=== PATIENT | male | born 1950 | race Caucasian/White ===

== ENCOUNTER 2017-05-17 13:26 | Outpatient (CLI) | payer MEDICARE, MEDICAID, OTHER ==
[~2017-05-17] VITALS: Ht 175.3 cm; Wt 76.7 kg
[2017-05-17] MEDS ORDERED: UNOBMED (15:13)
[2017-05-17 15:15] VITALS: BP 114/70
--- NOTE | 2017-05-17 16:30 | GI Initial Consult Note ---
Pena,Tina Ceferino N.PBecca 05/17/17 1630: History of Present Illness General Date patient seen: May 17, 2017 Time patient seen: 16:19 Referring physician: BRITTANY Reason for Consultation: Colonoscopy Present Illness HPI 66 year old male patient referred by Dr. Mann presents today for routine colonoscopy. Last colonoscopy 5 years ago with colonic polypis. In addition the patient states he has multiple EGDs which have included dilatation, last performed 4 years ago at the [place]. The patient has had multiple paracentesis, last one performed 4 months ago. Denies any diarrhea or constipation. Denies melena or GIB. Denies dysphagia. C/o of min abdominal distention. C/o of severe L. Hip pain. Denies any unintentional weight loss or changes in dietary habits. Patient is fall risk. Home Meds Reported Medications [Pancrelipase ] No Conflict Check, 5000 PO TID 05/18/17 Nut.tx.gluc.intoler,Lac-Fr,Soy (Glucerna) 237 Ml Liquid, 237 ML PO TID, ML 05/18/17 Hydrocodone Bit/Acetaminophen 5-325* (NOR[place] 5-325 TABLET*) 1 Each Tablet, 1 TAB ORAL Q6HR Y for For Pain, TAB 05/18/17 Digoxin* (LANOXIN*) 250 Mcg Tablet, 250 MCG ORAL DAILY, #30 TAB 0 Refills 05/18/17 Digoxin* (DIGOXIN*) 0.25 Mg/5 Ml Solution, 0.25 MG GT DAILY, ML 05/18/17 Metoprolol Tartrate* (METOPROLOL TARTRATE*) 50 Mg Tablet, 50 MG ORAL DAILY, TAB 05/18/17 [Prostatsugar Free] No Conflict Check, 30 ML PO BID 05/18/17 Ascorbic Acid* (VITAMIN C*) 250 Mg Tablet, 250 MG ORAL DAILY, #30 TAB 0 Refills 05/18/17 Insulin Aspart* (NOVOLOG*) 100 Unit/1 Ml Insuln.pen, 0 SUBQ BEFORE MEALS AND HS , #1 EA 0 Refills SLIDING SCALE 05/18/17 Levothyroxine Sodium* (LEVOTHYROXINE SODIUM*) 25 Mcg Tablet, 25 MCG ORAL DAILY, TAB Take in the morning on an empty stomach, at least 30 minutes before food. 05/18/17 Lactulose (LACTULOSE*) 20 Gm/30 Ml Solution, 30 ML ORAL DAILY, ML 0 Refills 05/18/17 Spironolactone* (SPIRONOLACTONE*) 100 Mg Tablet, 100 MG ORAL DAILY, TAB 05/18/17 Rifaximin* (XIFAXAN*) 550 Mg Tablet, 550 MG ORAL TWICE A DAY for 30 Days, MG 0 Refills 05/18/17 Levetiracetam* (LEVETIRACETAM*) 500 Mg Tablet, 500 MG ORAL DAILY, #60 TAB 0 Refills 05/18/17 Insulin Detemir (LEVEMIR) 100 Unit/1 Ml Vial, 15 SUBQ DAILY, VIAL 05/18/17 Gabapentin* (GABAPENTIN*) 300 Mg Capsule, 300 MG ORAL THREE TIMES A DAY, CAP 0 Refills 05/18/17 Furosemide* (LASIX*) 40 Mg Tablet, 40 MG ORAL DAILY, TAB 05/18/17 Folic Acid* (FOLIC ACID*) 1 Mg Tablet, 1 MG ORAL DAILY, TAB 05/18/17 Med list reviewed/reconciled: Yes Allergies: Coded Allergies: No Known Allergies (Unverified , 05/17/17) Patient History History Provided By: Patient PMH Narrative HTN pancreatitis cirrhosis DVT, ?CVA DM with neuropathy ?COPD seizure Family History Narrative Other brother - Colon CA Mother DM, HTN Social History: Reports: alcohol use, other - coffee Review of Systems All Other Systems: negative except mentioned in HPI Physical Exam Vital Signs Date Time Temp Pulse Resp B/P (MAP) Pulse Ox O2 Delivery O2 Flow Rate FiO2 05/17/17 15:15 98.2 61 16 114/70 99 Sp02 EP Interpretation: reviewed, normal General Appearance: well appearing, no apparent distress, alert, other - generalized weakness Head: normocephalic EENT: PERRL/EOMI, normal ENT inspection Neck: supple Respiratory: normal breath sounds, no respiratory distress Cardiovascular: normal rate Gastrointestinal: normal inspection, non tender, soft, normal bowel sounds, non -distended Rectal: deferred Genitourinary: deferred Musculoskeletal: normal inspection, back normal Neurologic: normal inspection, alert, oriented x3, responsive Psychiatric: normal inspection, judgement/insight normal, memory normal Skin: normal inspection, normal color, no rash, warm/dry, palpation normal, well hydrated Lymphatic: normal inspection, no adenopathy GI: Plan Problems: (1) HTN (hypertension) (2) Pancreatitis (3) DVT (deep vein thrombosis) in (4) Diabetes mellitus (5) Seizure (6) Colonoscopy planned Plan EGD/colonoscopy scheduled for 05/21/17. - CLD & (Nulytely/Suprep/Movi-Prep) prep instructions given and acknowledged by patient. - NPO @ HI day prior procedure explained. labs to be drawn day of procedure >> Hepatitis panel, CBC, CMP, coags Seen with Dr. Burgos. Thank you for this patient referral. ALVARO BURGOS 05/20/17 1147: History of Present Illness Present Illness Home Meds Reported Medications [Pancrelipase ] No Conflict Check, 5000 PO TID 05/18/17 Nut.tx.gluc.intoler,Lac-Fr,Soy (Glucerna) 237 Ml Liquid, 237 ML PO TID, ML 05/18/17 Hydrocodone Bit/Acetaminophen 5-325* (NOR[place] 5-325 TABLET*) 1 Each Tablet, 1 TAB ORAL Q6HR Y for For Pain, TAB 05/18/17 Digoxin* (LANOXIN*) 250 Mcg Tablet, 250 MCG ORAL DAILY, #30 TAB 0 Refills 05/18/17 Digoxin* (DIGOXIN*) 0.25 Mg/5 Ml Solution, 0.25 MG GT DAILY, ML 05/18/17 Metoprolol Tartrate* (METOPROLOL TARTRATE*) 50 Mg Tablet, 50 MG ORAL DAILY, TAB 05/18/17 [Prostatsugar Free] No Conflict Check, 30 ML PO BID 05/18/17 Ascorbic Acid* (VITAMIN C*) 250 Mg Tablet, 250 MG ORAL DAILY, #30 TAB 0 Refills 05/18/17 Insulin Aspart* (NOVOLOG*) 100 Unit/1 Ml Insuln.pen, 0 SUBQ BEFORE MEALS AND HS , #1 EA 0 Refills SLIDING SCALE 05/18/17 Levothyroxine Sodium* (LEVOTHYROXINE SODIUM*) 25 Mcg Tablet, 25 MCG ORAL DAILY, TAB Take in the morning on an empty stomach, at least 30 minutes before food. 05/18/17 Lactulose (LACTULOSE*) 20 Gm/30 Ml Solution, 30 ML ORAL DAILY, ML 0 Refills 05/18/17 Spironolactone* (SPIRONOLACTONE*) 100 Mg Tablet, 100 MG ORAL DAILY, TAB 05/18/17 Rifaximin* (XIFAXAN*) 550 Mg Tablet, 550 MG ORAL TWICE A DAY for 30 Days, MG 0 Refills 05/18/17 Levetiracetam* (LEVETIRACETAM*) 500 Mg Tablet, 500 MG ORAL DAILY, #60 TAB 0 Refills 05/18/17 Insulin Detemir (LEVEMIR) 100 Unit/1 Ml Vial, 15 SUBQ DAILY, VIAL 05/18/17 Gabapentin* (GABAPENTIN*) 300 Mg Capsule, 300 MG ORAL THREE TIMES A DAY, CAP 0 Refills 05/18/17 Furosemide* (LASIX*) 40 Mg Tablet, 40 MG ORAL DAILY, TAB 05/18/17 Folic Acid* (FOLIC ACID*) 1 Mg Tablet, 1 MG ORAL DAILY, TAB 05/18/17 Allergies: Coded Allergies: No Known Allergies (Unverified , 05/17/17) GI: Plan Plan The patient was seen and examined at bedside and all new and available data was reviewed in the patients chart. I agree with the above findings, impression and plan. (Patient seen earlier today. Signature stamp does not reflect patient encounter time.). - MD Becky Veloz Anh Ceferino NAdan May 17, 2017 16:30 ALVARO BURGOS May 20, 2017 11:47
[2017-05-18] MEDS ORDERED: FOLIC ACID1 MG ORAL (09:45)
[2017-05-18] MEDS ORDERED: LANOXIN250 MCG ORAL (09:45)
[2017-05-18] MEDS ORDERED: LACTULOSE20 GM/301 ORAL (09:45)
[2017-05-18] MEDS ORDERED: GLUCERNA237 ML PO (09:45)
[2017-05-18] MEDS ORDERED: DIGOXIN0.25 MG/5 GT (09:45)
[2017-05-18] MEDS ORDERED: LEVEMIR100 UNIT/1 SUBQ (09:45)
[2017-05-18] MEDS ORDERED: [UNRECOGNIZED DRUG - OTHER] PO (09:45)
[2017-05-18] MEDS ORDERED: PANCRELIPASE PO (09:45)
[2017-05-18] MEDS ORDERED: LEVETIRACETAM500 MG ORAL (09:45)
[2017-05-18] MEDS ORDERED: NOVOLOG100 UNIT/3 SUBQ (09:45)
[2017-05-18] MEDS ORDERED: SPIRONOLACTONE100 MG ORAL (09:45)
[2017-05-18] MEDS ORDERED: VITAMIN C250 MG ORAL (09:45)
[2017-05-18] MEDS ORDERED: XIFAXAN550 MG ORAL (09:45)
[2017-05-18] MEDS ORDERED: GABAPENTIN300 MG ORAL (09:45)
[2017-05-18] MEDS ORDERED: FUROSEMIDE40 MG ORAL (09:45)
[2017-05-18] MEDS ORDERED: METOPROLOL TART50 M1 ORAL (09:45)
[2017-05-18] MEDS ORDERED: LEVOTHYROXINE25 MCG ORAL (09:45)
[2017-05-18] MEDS ORDERED: NORCO 5-325 TA1 EAC1 ORAL (09:45)
== END 2017-05-17 13:59 | disposition home or self-care (01) ==
LOC: PAN 13:26
DX: K85.90 Acute pancreatitis without necrosis or infection, unspecified (principal); I10 Essential (primary) hypertension; G40.909 Epilepsy, unspecified, not intractable, without status epilepticus; Z86.010 Personal history of colon polyps; E11.40 Type 2 diabetes mellitus with diabetic neuropathy, unspecified; M25.552 Pain in left hip; Z80.0 Family history of malignant neoplasm of digestive organs; Z82.49 Family history of ischemic heart disease and other diseases of the circulatory system; Z83.3 Family history of diabetes mellitus; Z86.718 Personal history of other venous thrombosis and embolism
CPT/HCPCS: 99202

== ENCOUNTER 2017-05-21 09:04 | Day surgery (SDC) | payer MEDICARE, MEDICAID ==
[~2017-05-21] VITALS: Ht 175.3 cm; Wt 77.1 kg
[2017-05-21] VITALS (7 sets, daily range): BP systolic 127–142; BP diastolic 73–87
[~2017-05-21 09:04] MED LIST: DIGOXIN0.25 MG/5 GT; FOLIC ACID1 MG ORAL; FUROSEMIDE40 MG ORAL; GABAPENTIN300 MG ORAL; GLUCERNA237 ML PO; LACTULOSE20 GM/301 ORAL; LANOXIN250 MCG ORAL; LEVEMIR100 UNIT/1 SUBQ; LEVETIRACETAM500 MG ORAL; LEVOTHYROXINE25 MCG ORAL; METOPROLOL TART50 M1 ORAL; NORCO 5-325 TA1 EAC1 ORAL; NOVOLOG100 UNIT/3 SUBQ; PANCRELIPASE PO; SPIRONOLACTONE100 MG ORAL; UNOBMED; VITAMIN C250 MG ORAL; XIFAXAN550 MG ORAL; [UNRECOGNIZED DRUG - OTHER] PO
[2017-05-21] MEDS ORDERED: Lidocaine 1% MPF 10mg/ml 5ml ONE (10:00)
[2017-05-21] MEDS ORDERED: Propofol 200mg/20ml IV ONE (10:00)
[2017-05-21] MEDS ORDERED: Midazolam 2mg/2ml Inj ONE (10:00)
--- NOTE | 2017-05-21 10:00 | Short Stay Surgery H&P ---
History of Present Illness History of Present Illness Chief Complaint see recent consult note HPI Doyle Og is a 66 year old male who was admitted on for Hx Of Colon Polyps Patient History Allergies: Coded Allergies: No Known Allergies (Unverified , 05/17/17) PAST MEDICAL HISTORY: Past Surgeries: Social History: Medication History Scheduled Ascorbic Acid* (Vitamin C*), 250 MG ORAL DAILY, (Reported) Digoxin* (Digoxin*), 0.25 MG GT DAILY, (Reported) Digoxin* (Lanoxin*), 250 MCG ORAL DAILY, (Reported) Folic Acid* (Folic Acid*), 1 MG ORAL DAILY, (Reported) Furosemide* (Lasix*), 40 MG ORAL DAILY, (Reported) Gabapentin* (Gabapentin*), 300 MG ORAL THREE TIMES A DAY, (Reported) Insulin Aspart* (Novolog*), 0 SUBQ BEFORE MEALS AND HS, (Reported) Insulin Detemir (Levemir), 15 SUBQ DAILY, (Reported) Lactulose (Lactulose*), 30 ML ORAL DAILY, (Reported) Levetiracetam* (Levetiracetam*), 500 MG ORAL DAILY, (Reported) Levothyroxine Sodium* (Levothyroxine Sodium*), 25 MCG ORAL DAILY, (Reported) Metoprolol Tartrate* (Metoprolol Tartrate*), 50 MG ORAL DAILY, (Reported) Nut.tx.gluc.intoler,Lac-Fr,Soy (Glucerna), 237 ML PO TID, (Reported) Rifaximin* (Xifaxan*), 550 MG ORAL TWICE A DAY, (Reported) Spironolactone* (Spironolactone*), 100 MG ORAL DAILY, (Reported) [Pancrelipase ], 5,000 PO TID, (Reported) [Prostatsugar Free], 30 ML PO BID, (Reported) Scheduled PRN Hydrocodone Bit/Acetaminophen 5-325* ([place] 5-325 Tablet*), 1 TAB ORAL Q6HR PRN for For Pain, (Reported) Physical Exam Vital Signs Last Vital Signs Date Time Temp Pulse Resp B/P (MAP) Pulse Ox O2 Delivery O2 Flow Rate FiO2 05/21/17 09:44 98.0 78 18 131/78 99 Room Air Plan Attestation Are the patient's medical conditions optimized for surgery? ALVARO BURGOS May 21, 2017 10:00
--- NOTE | 2017-05-21 10:00 | Pre-Procedure Note/Attestation ---
Pre-Procedure Note/Attestation Complete Prior to Procedure Planned Procedure: not applicable Procedure Narrative: egd/colonoscopy Indications for Procedure Pre-Operative Diagnosis: h/o of colon polyps and esoph stricture Attestation I attest that I discussed the nature of the procedure; its benefits; risks and complications; and alternatives (and the risks and benefits of such alternatives ), prior to the procedure, with the patient (or the patient's legal car sales representative). I attest that, if there was a reasonable possibility of needing a blood transfusion, the patient (or the patient's legal car sales representative) was given the [facility] Services standardized written summary, pursuant to the Matt Dion Blood Safety Act ([place] Health and Safety Code # 1645, as amended). I attest that I re-evaluated the patient just prior to the surgery and that there has been no change in the patient's H&P, except as documented below: ALVARO BURGOS May 21, 2017 10:00
--- NOTE | 2017-05-21 10:29 | Anethesia Preoperative Eval ---
Anesthesia Pre-op PMH/ROS General Date of Evaluation: May 21, 2017 Time of Evaluation: 10:15 Anesthesiologist: Servando ASA Score: ASA 3 Mallampati Score Class I : Soft palate, uvula, fauces, pillars visible Class II: Soft palate, uvula, fauces visible Class III: Soft palate, base of uvula visible Class IV: Only hard plate visible Mallampati Classification: Class II Surgeon: Tom Diagnosis: colon polyps Surgical Procedure: EGD/Colonoscopy Anesthesia History: none Social History: smoking, alcohol use - quit 2015 Family History: no anesthesia problems Allergies: Coded Allergies: No Known Allergies (Unverified , 05/17/17) Medications: see eMAR Past Medical History Cardiovascular: Reports: HTN, other - chf Pulmonary: Reports: COPD Gastrointestinal/Genitourinary: Reports: GERD, other - colon polyps Neurologic/Psychiatric: Reports: CVA - right sided weakness, other - seizures Endocrine: Reports: DM, hypothyroidism, other - cirrhosis ascites Hematology/Immune: Reports: DVT Musculoskeletal/Integumentary: Reports: OA - back pain, DJD, other - unsteady gait Anesthesia Pre-op Phys. Exam Physician Exam Last Vital Signs Date Time Temp Pulse Resp B/P (MAP) Pulse Ox O2 Delivery O2 Flow Rate FiO2 05/21/17 09:44 98.0 78 18 131/78 99 Room Air Constitutional: NAD Neurologic: CN 2-12 intact Cardiovascular: RRR Respiratory: CTA Gastrointestinal: S/NT/ND Airway Exam Mallampati Score: Class II MO: limited ROM: limited Teeth: missing, intact Dentures: no upper, no lower Anesthesia Pre-op A/P Labs chart reviewed Accucheck 274 Studies Pre-op Studies: EKG - NSR 78 BPM Risk Assessment & Plan Assessment: A&Ox4 Plan: MAC Status Change Before Surgery: No Pre-Antibiotics Given Within 1 Hr of Incision: No - none per surgeon Florence Al CRNA May 21, 2017 10:29
--- NOTE | 2017-05-21 10:51 | Immediate Post-Op Evaluation ---
Immediate Post-Op Evalulation Immediate Post-Op Evalulation Procedure: EGD/Colon Date of Evaluation: May 21, 2017 Time of Evaluation: 11:05 IV Fluids: NSS 550ml Blood Products: 0 Estimated Blood Loss: 0 Urinary Output: 0 Blood Pressure Systolic: 127 Blood Pressure Diastolic: 73 Pulse Rate: 72 Respiratory Rate: 20 O2 Sat by Pulse Oximetry: 99 Temperature (Fahrenheit): 97.7 Pain Score (1-10): 0 Nausea: No Vomiting: No Complications none noted Patient Status: awake, reacts Hydration Status: adequate Given Within 1 Hr of Incision: Florence Humphrey CRNA May 21, 2017 10:51
--- NOTE | 2017-05-21 10:58 | 48 Hour Post Anesthesia Eval ---
Post Anesthesia Evaluation Procedure: EGD/Colon Date of Evaluation: May 21, 2017 Time of Evaluation: 11:19 Blood Pressure Systolic: 132 0: 74 Pulse Rate: 74 Respiratory Rate: 20 Temperature (Fahrenheit): 97.7 O2 Sat by Pulse Oximetry: 99 Airway: patent Nausea: No Vomiting: No Pain Intensity: 0 Hydration Status: adequate Mental Status/LOC: patient returned to baseline Post-Anesthesia Complications: none noted Follow-up care needed: patient intructions given Florence Al CRNA May 21, 2017 10:58
--- NOTE | 2017-05-21 10:58 | Endoscopy Procedure Note ---
Endoscopy Procedure Note Indication for Procedure: screening colon, GERD, esop stricture Procedures Performed: EGD, colonoscopy Operative Findings/Diagnosis: HH, gastritis, hemorrhoids Specimen: yes Pt Tolerated Procedure Well: Yes Estimated Blood Loss: none Anesthesiologist: sammi Anesthesia: MAC Implant(s) used?: No 50 yrs or older w/o bx or poly: No 10yrs. F/U not recommended: Yes If not recommended, why?: Above average risk 10 yrs. F/U needed: Yes 18 years or older w/prev. colo: Yes <3yrs. since last colonoscopy: No ALVARO BURGOS May 21, 2017 10:57
--- NOTE | 2017-05-22 02:15 | Procedure Note ---
DATE OF PROCEDURE: 05/21/2017 SURGEON: Sergio Santos M.D. PROCEDURE: Upper endoscopy with biopsy and colonoscopy. ANESTHESIA: Per Servando QUIÑONES. INSTRUMENT: Olympus adult flexible endoscope and colonoscope. INDICATION: History of esophageal strictures, screening colonoscopy, and prior history of colonic polyps. REASON FOR PROCEDURE: The procedure, risks, benefits, and possible consequences, including hemorrhage, aspiration, perforation and infection, and alternative treatments, were explained to the patient/legal guardian by Dr. Sergio Santos and the patient/legal guardian understood and accepted these risks. DESCRIPTION OF PROCEDURE: After informed consent was obtained and the patient was adequately sedated, Olympus upper endoscope was advanced from mouth into the second portion of the duodenum and retroflexion was performed of the stomach. The patient had a very shortened esophagus. The esophagus measured roughly about 30 centimeters. There was evidence of a medium-sized hiatal hernia. In the stomach, there was a lesion that roughly measured about 2 centimeters along the lesser curvature. This lesion had prominent folds on it. There was no evidence of any active ulceration or bleeding. This may be a submucosal lesion or prominent fold. This lesion needs to be further evaluated by EUS another day. The patient also had diffuse gastritis. Random biopsy from antrum and body was obtained. Gastritis was more prominent in the antrum of the stomach. Then, at this time the upper endoscope was retrieved and the patient was turned over for colonoscopy. First, a rectal exam was performed, which was positive for internal hemorrhoids. Then, the scope was advanced from the rectum into the cecum documented by appendiceal orifice, ileocecal valve, and right upper quadrant palpation. Quality of prep was good in the right colon, but unfortunately in the left colon, especially in the rectosigmoid area was limited. Half of the rectum was filled with solid stool, so examination of the rectum was definitely limited. Even the sigmoid colon, I would say 30% of the colonic mucosa of the sigmoid was not evaluated given prep. There was no obvious evidence of mass, polyp, bleeding or any other lesion in the colon. There was evidence of hemorrhoids, which was seen on retroflexion. SUMMARY OF FINDINGS: 1. Shortened esophagus. 2. Gastritis, status post biopsy. 3. Hiatal hernia. 4. A 2 centimeter lesion along the lesser curvature below the Z-line, needs EUS for further evaluation. 5. Fair colonic prep, especially in the left side. 6. No obvious colonic polyps. 7. Internal hemorrhoids. RECOMMENDATIONS: 1. The patient to have followup biopsies and treat accordingly. 2. The patient would need EUS as an outpatient for evaluation of this gastric lesion. 3. The patient would need a repeat colonoscopy in 5 years. I want to thank, Dr. Shukri Hernández, for this kind referral. Sergio Santos M.D. DR: GONZÁLEZ JOB#: [id number] CC: Shukri Hernández M.D.; Fax#: [phone]
--- NOTE | 2017-05-27 18:02 | Cardiology Report ---
APPROVED REPORT EKG Measurement Heart [id number] AL [id number] Normal sinus rhythm Low voltage QRS Borderline ECG
== END 2017-05-21 12:50 | disposition home or self-care (01) ==
LOC: GAS 09:04
DX: Z12.11 Encounter for screening for malignant neoplasm of colon (principal); K44.9 Diaphragmatic hernia without obstruction or gangrene; K64.8 Other hemorrhoids; Z86.010 Personal history of colon polyps; Q39.8 Other congenital malformations of esophagus; I10 Essential (primary) hypertension; J44.9 Chronic obstructive pulmonary disease, unspecified; K21.9 Gastro-esophageal reflux disease without esophagitis; G81.91 Hemiplegia, unspecified affecting right dominant side; M19.90 Unspecified osteoarthritis, unspecified site; Z86.718 Personal history of other venous thrombosis and embolism; E11.9 Type 2 diabetes mellitus without complications; E03.9 Hypothyroidism, unspecified
CPT/HCPCS: 43239; 82962; 93005; G0121; J2250; J2704; 94003; 94150

== ENCOUNTER 2017-06-18 09:51 | Day surgery (SDC) | payer MEDICARE, MEDICAID ==
[2017-06-18] VITALS (9 sets, daily range): BP systolic 111–148; BP diastolic 63–90
[~2017-06-18] VITALS: Ht 175.3 cm; Wt 77.1 kg
--- NOTE | 2017-06-18 10:18 | Pre-Procedure Note/Attestation ---
Pre-Procedure Note/Attestation Complete Prior to Procedure Planned Procedure: not applicable Procedure Narrative: eus Indications for Procedure Pre-Operative Diagnosis: gastric submucosal lesion Attestation I attest that I discussed the nature of the procedure; its benefits; risks and complications; and alternatives (and the risks and benefits of such alternatives ), prior to the procedure, with the patient (or the patient's legal technical account representative). I attest that, if there was a reasonable possibility of needing a blood transfusion, the patient (or the patient's legal technical account representative) was given the [facility] standardized written summary, pursuant to the Matt Dion Blood Safety Act ([place] Health and Safety Code # 1645, as amended). I attest that I re-evaluated the patient just prior to the surgery and that there has been no change in the patient's H&P, except as documented below: ALVARO BURGOS Jun 18, 2017 10:18
--- NOTE | 2017-06-18 10:19 | Short Stay Surgery H&P ---
History of Present Illness History of Present Illness Chief Complaint gastric submucosal lesion HPI Doyle Og is a 66 year old male who was admitted on for Gastric Lesion Patient History Allergies: Coded Allergies: No Known Allergies (Unverified , 05/17/17) PAST MEDICAL HISTORY: (1) HTN (hypertension) (2) Seizure (3) Diabetes mellitus (4) DVT (deep vein thrombosis) in Past Surgeries: Social History: Medication History Scheduled Ascorbic Acid* (Vitamin C*), 250 MG ORAL DAILY, (Reported) Digoxin* (Lanoxin*), 250 MCG ORAL DAILY, (Reported) Folic Acid* (Folic Acid*), 1 MG ORAL DAILY, (Reported) Furosemide* (Lasix*), 40 MG ORAL DAILY, (Reported) Gabapentin* (Gabapentin*), 300 MG ORAL THREE TIMES A DAY, (Reported) Insulin Aspart* (Novolog*), 0 SUBQ BEFORE MEALS AND HS, (Reported) Insulin Detemir (Levemir), 15 SUBQ DAILY, (Reported) Lactulose (Lactulose*), 30 ML ORAL DAILY, (Reported) Levetiracetam* (Levetiracetam*), 500 MG ORAL DAILY, (Reported) Levothyroxine Sodium* (Levothyroxine Sodium*), 25 MCG ORAL DAILY, (Reported) Metoprolol Tartrate* (Metoprolol Tartrate*), 50 MG ORAL DAILY, (Reported) Nut.tx.gluc.intoler,Lac-Fr,Soy (Glucerna), 237 ML PO TID, (Reported) Rifaximin* (Xifaxan*), 550 MG ORAL TWICE A DAY, (Reported) Spironolactone* (Spironolactone*), 100 MG ORAL DAILY, (Reported) [Pancrelipase ], 5,000 PO TID, (Reported) [Prostatsugar Free], 30 ML PO BID, (Reported) Scheduled PRN Hydrocodone Bit/Acetaminophen 5-325* ([place] 5-325 Tablet*), 1 TAB ORAL Q6HR PRN for For Pain, (Reported) Review of Systems Cardiovascular: Reports: no symptoms Respiratory: Reports: no symptoms Skeletal: Reports: no symptoms Gastrointestinal: Reports: no symptoms Genitourinary: Reports: no symptoms Neurologic: Reports: no symptoms Endocrine: Reports: no symptoms Hematologic: Reports: no symptoms Physical Exam Skin: normal HENT: normal Heart: normal Lungs: normal Abdomen: normal Extremities: normal Plan Plan of Care eus Final Diagnosis: Attestation Are the patient's medical conditions optimized for surgery? Attestation Response: yes ALVARO BURGOS Jun 18, 2017 10:19
[2017-06-18] MEDS ORDERED: Lidocaine 1% MPF 10mg/ml 5ml ONE (11:30)
[2017-06-18] MEDS ORDERED: Propofol 200mg/20ml IV ONE (11:30)
[2017-06-18] MEDS ORDERED: LR 1000ml ONE (11:30)
--- NOTE | 2017-06-18 11:33 | Endoscopy Procedure Note ---
Endoscopy Procedure Note General Indication for Procedure: gastric submucosal lesion Procedures Performed: other - EUS Operative Findings/Diagnosis: same Specimen: none Pt Tolerated Procedure Well: Yes Estimated Blood Loss: none Anesthesia Anesthesiologist: oleksandr Anesthesia: MAC Inserted Devices Implant(s) used?: No GI Core Measures 50 yrs or older w/o bx or poly: Not Applicable 10yrs. F/U not recommended: Not Applicable ALVARO BURGOS Jun 18, 2017 11:33
--- NOTE | 2017-06-18 11:54 | Anethesia Preoperative Eval ---
Anesthesia Pre-op PMH/ROS General Date of Evaluation: Jun 18, 2017 Time of Evaluation: 11:53 Anesthesiologist: amira ASA Score: ASA 3 Mallampati Score Class I : Soft palate, uvula, fauces, pillars visible Class II: Soft palate, uvula, fauces visible Class III: Soft palate, base of uvula visible Class IV: Only hard plate visible Mallampati Classification: Class II Surgeon: unique Diagnosis: pancreatitis Surgical Procedure: EUS Anesthesia History: none Social History: alcohol use Family History: no anesthesia problems Allergies: Coded Allergies: No Known Allergies (Unverified , 05/17/17) Medications: see eMAR Past Medical History Cardiovascular: Reports: HTN, CAD - s/ stent Pulmonary: Denies: asthma, COPD, [place], other Gastrointestinal/Genitourinary: Reports: GERD, Denies: CRI, ESRD, other Neurologic/Psychiatric: Reports: CVA, Denies: dementia, depression/anxiety, TIA, other Endocrine: Reports: DM, hypothyroidism HEENT: Denies: cataract (L), cataract (R), glaucoma, [place] (L), [place] (R), other Hematology/Immune: Reports: anemia, Denies: DVT, bleeding disorder, other Musculoskeletal/Integumentary: Reports: OA, DJD PSxH Narrative: unknown Anesthesia Pre-op Phys. Exam Physician Exam Last Vital Signs Date Time Temp Pulse Resp B/P (MAP) Pulse Ox O2 Delivery O2 Flow Rate FiO2 06/18/17 10:39 99.4 74 20 148/90 100 Room Air 99.4 Constitutional: NAD Neurologic: CN 2-12 intact Cardiovascular: RRR Respiratory: CTA Gastrointestinal: other - distanded Airway Exam Mallampati Classification 3 Mallampati Score: Class II MO: full ROM: full Dentures: no upper, no lower Anesthesia Pre-op A/P Studies Pre-op Studies: EKG - sr Risk Assessment & Plan Assessment: denies cp Plan: mac Status Change Before Surgery: No Pre-Antibiotics Drug: none AIDAN FONTANEZ CRNA Jun 18, 2017 11:54
--- NOTE | 2017-06-18 12:12 | Immediate Post-Op Evaluation ---
Immediate Post-Op Evalulation Immediate Post-Op Evalulation Procedure: EUS Date of Evaluation: Jun 18, 2017 Time of Evaluation: 12:10 IV Fluids: 200 Blood Pressure Systolic: 111 Blood Pressure Diastolic: 63 Pulse Rate: 67 O2 Sat by Pulse Oximetry: 100 Temperature (Fahrenheit): 97.7 Pain Score (1-10): 0 Nausea: No Vomiting: No Complications none Patient Status: awake, reacts, patent Hydration Status: adequate Drug: none AIDAN FONTANEZ CRNA Jun 18, 2017 12:11
--- NOTE | 2017-06-18 12:29 | 48 Hour Post Anesthesia Eval ---
Post Anesthesia Evaluation Procedure: EUS Date of Evaluation: Jun 18, 2017 Time of Evaluation: 12:28 Blood Pressure Systolic: 135 0: 85 Pulse Rate: 74 Respiratory Rate: 14 Airway: patent Nausea: No Vomiting: No Hydration Status: adequate Cardiopulmonary Status: stable Mental Status/LOC: patient returned to baseline Post-Anesthesia Complications: none Follow-up care needed: N/A AIDAN FONTANEZ CRNA Jun 18, 2017 12:29
[2017-06-18] MEDS ORDERED: Norco 5mg/325mg tab ORAL ONE (14:15)
--- NOTE | 2017-06-18 15:54 | Diagnostic Imaging Report ---
Indication: Abdominal pain Technique: Continuous helical transaxial imaging of the abdomen and pelvis was obtained from the lung bases to the pubic symphysis during intravenous contrast administration. Coronal 2-D reformats were also obtained. Study obtained in a Siemens sensation [address] Automatic Exposure Control was utilized. Total Dose length Product (DLP): 857.[address] Dose Index Volume (CTDIvol): 15.7 mGy Comparison: None Findings: There is a small right pleural effusion. Moderate ascites demonstrated. The stomach is nondistended with prominence of the wall, especially in the region of the gastric antrum. Consider follow-up endoscopy.. Tiny gallstone demonstrated. Extensive calcification of the parenchyma of the pancreas noted consistent with chronic calcific pancreatitis. The main pancreatic duct is moderately dilated. The biliary ducts do not appear dilated. There is a suggestion of a small pseudocyst extending anterosuperiorly from the tail of the pancreas measuring about 3 cm. The spleen is prominent measuring 14 x 8 cm. There is evidence of recanalization of the umbilical vein. There are multiple serpiginous enhancing structures surrounding the distal esophagus, cardia of the stomach suspicious for portosystemic varices. The main portal vein is not seen. The main portal vein is probably thrombosed and the thrombosis is also likely chronic given multiple serpiginous vascular structures in the [place] hepatis extending into the liver community representative of cavernous transformation. An IVC filter is seen below the renal veins. There is no hydronephrosis or evidence of bowel obstruction. There is a small umbilical hernia containing ascites. Appendix is probably normal but not well seen. Bladder is unremarkable. Diverticula noted in the colon. Difficult to exclude diverticulitis given the ascites present. There is a tiny hypodensity in the liver measuring 7 mm in the posterior right lobe near the IVC nonspecific. 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 Recanalized umbilical vein, and portosystemic varices, ascites and splenomegaly, signs of portal hypertension. Cholelithiasis Small right pleural effusion. Chronic calcific pancreatitis. 3 cm pseudocyst adjacent to the pancreatic tail. IVC filter Tiny liver hypodensity too small to characterize adequately. Nondistended stomach. Prominence of the wall of the stomach. Consider endoscopy for further evaluation. The CT scanner at [facility] is accredited by the [employer] and the scans are performed using dose optimization techniques as appropriate to a performed exam including Automatic Exposure control.
--- NOTE | 2017-06-19 01:15 | Procedure Note ---
SURGEON: Sergio Santos M.D. PROCEDURE: Endoscopic ultrasound. ANESTHESIA: Per [employer]ER, Lilliana Tarrillion. INSTRUMENT: Olympus EUS scope. INDICATION: Gastric submucosal lesion. The procedure, risks, benefits, and possible consequences, including hemorrhage, aspiration, perforation and infection, and alternative treatments, were explained to the patient/legal guardian by Dr. Sergio Santos and the patient/legal guardian understood and accepted these risks. PROCEDURE: After informed consent was obtained and the patient was observed, the EUS radial scope was advanced from mouth into the esophagus and then starting at GE junction, we started scanning. The patient had evidence of significant gastric varices. The pancreas was atrophic, suggestive of chronic pancreatitis. There was a 3 cm cyst in the area of the body and tail of the pancreas. It seems to be most likely a pseudocyst, had some component, which seems to be fluid and some component, which sounds to be may be solid, but this is most likely a pseudocyst measured roughly about 3 cm. Then, the scope was advanced into the antrum and subsequently duodenal bulb and second portion of the duodenum. The gallbladder was seen with some stones in it. No evidence of any pancreatic mass was seen in the head or uncinate process. At this time, the scope was retrieved and procedure was terminated. SUMMARY OF FINDINGS: 1. Gastric varices. 2. Ascites. 3. Cirrhosis. 4. A 3 cm pancreatic pseudocyst. 5. Gallstones. RECOMMENDATIONS: At this time, given this is only 3 cm and he is not symptomatic, we will recommend observation. The patient to follow up for further management. I want to thank, Dr. Corwin Aguilera, for this kind referral. Sergio Santos M.D. DR: NAVJOT JOB#: [id number] CC:
--- NOTE | 2017-06-30 16:58 | Cardiology Report ---
APPROVED REPORT EKG Measurement Heart [id number] Normal sinus rhythm Low voltage QRS Borderline ECG
== END 2017-06-18 15:20 | disposition home or self-care (01) ==
LOC: GAS 09:51
DX: K31.9 Disease of stomach and duodenum, unspecified (principal); I86.4 Gastric varices; R18.8 Other ascites; K74.60 Unspecified cirrhosis of liver; K86.3 Pseudocyst of pancreas; K80.80 Other cholelithiasis without obstruction; I11.9 Hypertensive heart disease without heart failure; I25.10 Atherosclerotic heart disease of native coronary artery without angina pectoris; Z95.5 Presence of coronary angioplasty implant and graft; K21.9 Gastro-esophageal reflux disease without esophagitis; E11.9 Type 2 diabetes mellitus without complications; E03.9 Hypothyroidism, unspecified; M19.90 Unspecified osteoarthritis, unspecified site; G40.909 Epilepsy, unspecified, not intractable, without status epilepticus; Z86.718 Personal history of other venous thrombosis and embolism; Z86.73 Personal history of transient ischemic attack (TIA), and cerebral infarction without residual deficits
CPT/HCPCS: 43259; 74177; 82962; 93005; J2704; J7120; Q9967; 94003; 94150